=== PATIENT | male | born 1950 | race Caucasian/White ===

== ENCOUNTER 2018-08-15 07:36 | Outpatient (CLI) | payer BC, OTHER ==
--- NOTE | 2018-08-15 09:54 | CT ---
ABDOMEN AND PELVIC CT SCAN WITH AND WITHOUT IV CONTRAST: History: 68-year-old male with history of kidney stones and microscopic hematuria. Comparison: 07-14-16 noncontrast study. FINDINGS: The lung bases demonstrate some mild pleural based dependent positioning changes and some minimal sca rring associated with atelectasis in the lingula. Three vessel coronary artery calcific disease. The liver, gallbladder, pancreas, spleen, and adrenal glands demonstrate a small focal area of nodularity involving the right adrenal gland, less than 1 cm in size, evidence for a small adenoma. No overt re nal calculus. No obstructing calculus. There are some scattered renal vascular calcifications. Kvng y tiny less than 1 cm low attenuation focus in the right kidney, statistically a small cyst. 3 cm aby meter infrarenal abdominal aortic aneurysm, stable. Extensive colonic diverticulosis without divertic ulitis, particularly in the left colon and sigmoid colon. No CT evidence for acute appendicitis. Pros [place] gland enlargement. Slightly fatty inguinal canals bilaterally. IMPRESSION: No renal calculus or acute obstruction. Evidence for prostate gland enlargement. Unremarkable appe aring bladder. No evidence for other significant acute process. Stable from 07-14-16. POS: [facility]
== END 2018-08-15 07:37 | disposition home or self-care (01) ==
LOC: SCSCT 07:36
PROVIDERS: ATTEND Urology
DX: R31.29 Other microscopic hematuria (principal); N40.1 Benign prostatic hyperplasia with lower urinary tract symptoms; Z87.442 Personal history of urinary calculi
CPT/HCPCS: 74178

== ENCOUNTER 2024-12-05 12:04 | Outpatient (CLI) | payer MEDICARE | END 2024-12-05 12:05 | disposition home or self-care (01) | LOC: ULT 12:04 | DX: M79.89 Other specified soft tissue disorders (principal) ==